=== PATIENT | female | born 1995 | race Caucasian/White ===

== ENCOUNTER 2017-02-01 12:14 | Emergency (ER) | payer OTHER ==
[~2017-02-01] VITALS: Ht 160 cm; Wt 74.0 kg
[2017-02-01] MEDS ORDERED: MOTRIN800 MG PO (13:17)
[2017-02-01 13:19] VITALS: BP 129/78
== END 2017-02-01 13:34 | disposition home or self-care (01) ==
LOC: EME 12:14
DX: S60.221A Contusion of right hand, initial encounter (principal); X58.XXXA Exposure to other specified factors, initial encounter
CPT/HCPCS: 73130; 99281; 99283

== ENCOUNTER 2017-02-15 01:53 | Emergency (ER) | payer OTHER ==
[~2017-02-15] VITALS: Ht 160 cm; Wt 74.8 kg
[~2017-02-15 01:53] MED LIST: MOTRIN800 MG PO
[2017-02-15 03:43] VITALS: BP 127/78
== END 2017-02-15 03:44 | disposition home or self-care (01) ==
LOC: EME 01:53
DX: J06.9 Acute upper respiratory infection, unspecified (principal)
CPT/HCPCS: 99281; 99283